=== PATIENT | female | born 1980 | race American Indian/Alaskan Native ===

== ENCOUNTER 2018-07-27 08:42 | Day surgery (SDC) | payer BC ==
[~2018-07-27] VITALS: Ht 157.5 cm; Wt 89.4 kg
[~2018-07-27 08:42] MED LIST: BCP; Hair, Skin & N1 EACH PO; IRON160 M1; PRED20 PO; PRENATAL; VALA500 PO; [UNRECOGNIZED DRUG - REMARK] PO
== END 2018-07-27 14:11 | disposition home or self-care (01) ==
LOC: ORSCMMR 08:42 → ORD 10:15 → ORSCMMR 14:11
PROVIDERS: Obstetrics & Gynecology
PROC: 0UT74ZZ Resection of Bilateral Fallopian Tubes, Percutaneous Endoscopic Approach (ICD-10-PCS; principal; 2018-07-27 10:15)
DX: Z30.2 Encounter for sterilization (principal); E66.01 Morbid (severe) obesity due to excess calories; Z68.36 Body mass index [BMI] 36.0-36.9, adult
CPT/HCPCS: 88302; J2250; J3010; J7120

== ENCOUNTER → 2018-10-11 | Outpatient (CLI) | payer BC | END | disposition home or self-care (01) | LOC: LAB SHORT 11:22 → PLD 11:22 | DX: D22.5 Melanocytic nevi of trunk (principal) | CPT/HCPCS: 88305 ==

== ENCOUNTER → 2019-10-07 | Outpatient (CLI) | payer BC | END | disposition home or self-care (01) | LOC: LAB SHORT 10:11 → LAB EV 10:11 | DX: L03.019 Cellulitis of unspecified finger (principal) | CPT/HCPCS: 87070; 87075; 87147; 87205 ==

== ENCOUNTER → 2021-01-13 | Outpatient (CLI) | payer BC ==
[2021-01-14 16:08] LABS: HPV 16 Negative (Negative); HPV 18 Negative (Negative); HPV OTHER HR TYPES Negative (Negative)
== END ==
LOC: LAB SHORT 16:38
PROVIDERS: Obstetrics & Gynecology
DX: Z12.4 Encounter for screening for malignant neoplasm of cervix (principal)
CPT/HCPCS: 87624; G0123

== ENCOUNTER 2022-09-13 01:58 | Observation (INO) | payer OTHER, BC ==
[~2022-09-13] VITALS: Ht 157.5 cm; Wt 92.5 kg
[2022-09-13 02:52] LABS: BASOPHILS ABSOLUTE AUTO 0.08 K/mm3 (0.00-0.23); BASOPHILS PERCENT AUTO 0 % (0-2); EOSINOPHILS ABSOLUTE AUTO 0.66 K/mm3 (0.00-0.68); EOSINOPHILS PERCENT AUTO 4 % (0-6); Hematocrit 35.7 % (33.0-51.0); Hemoglobin 11.7 g/dL (11.5-16.0); IMMATURE GRAN ABSOLUTE AUTO 0.06 K/mm3 (0.00-0.10); IMMATURE GRAN PERCENT AUTO 0 % (0-1); LYMPHOCYTES ABSOLUTE AUTO 2.08 K/mm3 (0.84-5.20); LYMPHOCYTES PERCENT AUTO 11 % (21-46); MONOCYTES ABSOLUTE AUTO 1.06 K/mm3 (0.16-1.47); MONOCYTES PERCENT AUTO 6 % (4-13); Mean Corpuscular HGB 25.1 pg (26.0-34.0); Mean Corpuscular HGB Conc 32.8 g/dL (31.5-36.5); Mean Corpuscular Volume 76 fL (80-100); Mean Platelet Volume 9.4 fL (9.1-12.4); NEUTROPHILS ABSOLUTE AUTO 14.89 K/mm3 (1.96-9.15); NEUTROPHILS PERCENT AUTO 79 % (41-73); NRBC ABSOLUTE 0.02 K/mm3 (0.00-0.02); NRBC Auto 0.1 /100 WBC (0.0-0.2); Platelet Count 329 K/mm3 (150-400); RDW Standard Deviation 46.5 fL (35.1-46.3); Red Blood Cell Count 4.67 M/mm3 (3.80-5.20); White Blood Cell Count 18.83 K/mm3 (4.00-11.30)
[2022-09-13 03:09] LABS: Albumin, Blood 3.6 g/dL (3.4-5.0); Albumin/Globulin Ratio 0.9 (0.8-1.8); Bilirubin, Total 0.3 mg/dL (0.1-1.0); Bun/Creatinine Ratio 10.7 (12.0-20.0); Creatinine, Blood 0.85 mg/dL (0.40-1.00); Potassium, Blood 3.6 mmol/L (3.5-5.5); Total Protein, Blood 7.6 g/dL (6.4-8.2)
[2022-09-13 03:30] LABS: Influenza A, PCR NEGATIVE (NEGATIVE); Influenza B, PCR NEGATIVE (NEGATIVE); Resp Syncytial Virus, PCR NEGATIVE (NEGATIVE); SARS-Cov-2 (COVID-19) PCR, MMC NEGATIVE (NEGATIVE)
[2022-09-13 05:34] LABS: Source, Urine Clean Catch
[2022-09-13 05:41] LABS: Appearance, Urine Clear (Clear); Bilirubin, Urine Neg (Neg); Blood, Urine 3+ (Neg); Color, Urine Yellow (P-Yellow); Glucose Qualitative, Urine Neg (Neg); Ketones, Urine Neg (Neg); Leukocyte Esterase, Urine Neg (Neg); Nitrite, Urine Neg (Neg); Protein, Urine Neg (Neg); Urobilinogen, Urine NORM (Normal)
[2022-09-13 06:00] LABS: Bacteria Few /hpf; Red Blood Cells, Urine 0-2 /hpf (0-2); Squamous Epithelial Cells Few /hpf (Few); White Blood Cells, Urine 0-2 /hpf (0-5)
--- NOTE | 2022-09-13 16:44 | NUR ---
BLOOD CULTURE #2 PHELOBOTOMY HAS BEEN UNSUCCESSFUL X5 ATTEMPTS AT OBTAINING A SECOND BLOOD CULTURE. PT RELATED THAT SHE IS A HORRIBLE BLOOD DRAW HISTORICALLY. CONTINUE POC.
--- NOTE | 2022-09-13 16:47 | NUR ---
SHIFT NOTE PT VISITING WITH FAMILY AT BEDSIDE. SHE COMPLAINED THAT THE LEFT FLANK PAIN WAS GETTING WORSE. MEDICATED WITH TYLNOL AND TORDOL. SHE IS RESTING MORE COMFORTABLE AT THSI TIME. LAB HAS BEEN UNSUCCESSFUL OBTAINING THE 2ND BLOOD CULTURE. THEY HAVE TRIED 5 TIMES. PT HAS BEEN SUCH A TROOPER. IVF INFUSING AT 100 ML/HR ORDERED. CONSULT TO DR MADISON CALLED. RETURN CALL RECEIVED. DR MADISON REORDERED THE PELVIC U/S. SHE WANTS IT BEFORE SHE SEES THE PT. CALLED U/S TECH. PT IS CIRRENTLY MENSTRATING. SHE REMOVED HER MENSTRAL CUP AND IS WEARING A PAD. CONTINUE POC.
--- NOTE | 2022-09-14 04:46 | NUR ---
SHIFT SUMMARY; PT WITH NO ACUTE CHANGES OVERNIGHT. PT REPORTS THAT HER PAIN HAS SIGNIFICANTLY DECREASED. PT WAS ABLE TO REST FOR THE DURATION OF THE NIGHT. NS REMAINS RUNNING AT 100MLS/HR. PT IS CURRENTLY RESTING IN BED WITH THE BED IN THE LOWEST POSITION AND THE CALL LIGHT AT BEDSIDE.
[2022-09-14 05:02] LABS: BASOPHILS ABSOLUTE AUTO 0.03 K/mm3 (0.00-0.23); BASOPHILS PERCENT AUTO 1 % (0-2); EOSINOPHILS ABSOLUTE AUTO 0.37 K/mm3 (0.00-0.68); EOSINOPHILS PERCENT AUTO 6 % (0-6); Hematocrit 32.8 % (33.0-51.0); Hemoglobin 10.5 g/dL (11.5-16.0); IMMATURE GRAN ABSOLUTE AUTO 0.03 K/mm3 (0.00-0.10); IMMATURE GRAN PERCENT AUTO 1 % (0-1); LYMPHOCYTES ABSOLUTE AUTO 1.87 K/mm3 (0.84-5.20); LYMPHOCYTES PERCENT AUTO 28 % (21-46); MONOCYTES ABSOLUTE AUTO 0.66 K/mm3 (0.16-1.47); MONOCYTES PERCENT AUTO 10 % (4-13); Mean Corpuscular HGB 24.6 pg (26.0-34.0); Mean Corpuscular Volume 77 fL (80-100); Mean Platelet Volume 9.3 fL (9.1-12.4); NEUTROPHILS ABSOLUTE AUTO 3.69 K/mm3 (1.96-9.15); NEUTROPHILS PERCENT AUTO 55 % (41-73); Platelet Count 272 K/mm3 (150-400); RDW Coefficient Variation 17.4 % (11.7-14.2); RDW Standard Deviation 48.3 fL (35.1-46.3); Red Blood Cell Count 4.26 M/mm3 (3.80-5.20); White Blood Cell Count 6.65 K/mm3 (4.00-11.30)
[2022-09-14 05:47] LABS: C-REACTIVE PROTEIN, EXT RANGE 6.21 mg/dL (0.000-0.300); Calcium, Blood 7.7 mg/dL (8.5-10.1); Creatinine, Blood 0.64 mg/dL (0.40-1.00); Potassium, Blood 3.5 mmol/L (3.5-5.5)
[2022-09-14] MEDS ORDERED: AMOCLA875 PO (10:33)
[2022-09-14] MEDS ORDERED: IBU600 M1 PO (10:34)
[2022-09-14] MEDS ORDERED: VISBIOME 112.51 EACH PO (10:35)
--- NOTE | 2022-09-14 11:29 | NUR ---
DISCHARGE HOME PT DISCHARGED HOME VIA PRIVATE VEHICLE. CAME AND GOT HER. SHE DECLINED A W/C OUT. THIS NURSE WALKED WITH HER TO THE SOUTH ENTRANCE. PT HAD NO ISSUE. PERSCRIPTIONS FAXED TO [facility] REQUESTED. IV REMOVED PRESSURE DRESSING APPLIED. CONTINUE POC.
[2022-09-16 03:10] LABS: CHLAMYDIA TRACHOMATIS, NAA Negative (Negative)
== END 2022-09-14 11:29 | disposition home or self-care (01) ==
LOC: ER 01:58 → MEDS 01:59 → ERHOLD 01:59 → MEDS 13:09
PROVIDERS: Student in an Organized Health Care Education/Training Program; ADMIT Internal Medicine
DX: R10.32 Left lower quadrant pain (principal); R65.10 Systemic inflammatory response syndrome (SIRS) of non-infectious origin without acute organ dysfunction; Z20.822 Contact with and (suspected) exposure to COVID-19
CPT/HCPCS: 0241U; 36415; 74177; 80048; 80053; 81001; 81025; 83605; 83690; 85025; 85651; 86140; 87040; 87491; 87591; 96374-59; 96375; 99285-25; A9270; J0696; J1650; J1885; J2405; J3010; J7030; Q9967

== ENCOUNTER → 2024-07-10 | Outpatient (CLI) | payer BC ==
[~2024-07-10] MED LIST changes: +AMOCLA875 PO; +IBU600 M1 PO; +VISBIOME 112.51 EACH PO
[2024-07-15 22:07] LABS: HSV 1 SUBTYPE BY PCR Not Detected; HSV 2 SUBTYPE BY PCR Not Detected; HSV SUBTYPE SOURCE Serum
== END ==
LOC: LAB SHORT 19:16 → LAB 19:16
PROVIDERS: Physician Assistant
DX: B02.9 Zoster without complications (principal)
CPT/HCPCS: 87529